=== PATIENT | female | born 1935 | race Two or more races ===

== ENCOUNTER → 2017-06-29 | Outpatient (CLI) | payer MEDICARE, MEDICAID | END | disposition home or self-care (01) | LOC: MAMMO 09:41 | PROVIDERS: ATTEND Specialist | DX: Z12.31 Encounter for screening mammogram for malignant neoplasm of breast (principal) | CPT/HCPCS: 77067 ==

== ENCOUNTER → 2018-01-26 | Outpatient (CLI) | payer MEDICARE, MEDICAID | END | disposition home or self-care (01) | LOC: US 11:05 | PROVIDERS: ATTEND Specialist | DX: E03.9 Hypothyroidism, unspecified (principal) | CPT/HCPCS: 76536 ==

== ENCOUNTER → 2018-02-18 | Day surgery (SDC) | payer MEDICARE, MEDICAID ==
[~2018-02-18] MED LIST: LIDOCAINE HCL 1% 20ML VIAL (Pyxis) INJ ONE; SODIUM BICARBONATE 4% (2.4MEQ) 5ML VIAL IV ONE
== END | disposition home or self-care (01) ==
LOC: RAD 12:52
PROVIDERS: ATTEND Specialist
DX: E04.1 Nontoxic single thyroid nodule (principal); E03.9 Hypothyroidism, unspecified
CPT/HCPCS: 10022; 76942; 88172; 88173; J3490

== ENCOUNTER 2019-05-14 11:30 | Inpatient (IN) | payer MEDICARE, MEDICAID ==
[~2019-05-14] VITALS: Ht 160 cm; Wt 55.8 kg
[2019-05-14] VITALS (11 sets, daily range): BP systolic 94–125; BP diastolic 56–104
[2019-05-14 14:17] LABS: HEMATOCRIT. 37.3 % (36.0-48.0); HEMOGLOBIN. 12.8 g/dL (12.0-16.0); MEAN CORPUSCULAR HEMOGLOBIN 31.3 pg (28.0-32.0); MEAN CORPUSCULAR VOLUME 91.4 fL (81.0-99.0); MEAN PLATELET VOLUME 7.1 fl (7.4-10.4); PLATELET 250 x1000/uL (130-400); RED BLOOD CELL COUNT 4.08 mill/uL (4.2-5.4); RED CELL DISTRIBUTION WIDTH 19.3 % (11.6-14.6)
[2019-05-14 14:32] LABS: PLATELET ESTIMATE NORMAL
[2019-05-14 14:34] LABS: CHLORIDE 109 mEq/L (98-107)
[2019-05-14] MEDS ORDERED: DEXAMETHASONE 10 MG/ML VIAL IV ONE (15:45)
[2019-05-14] MEDS ORDERED: LEVETIRACETAM 500MG PREMIX 100 ML IV ONE (15:45)
[2019-05-14 17:04] LABS: CLARITY URINE CLOUDY (CLEAR); COLOR URINE DARK YELLOW (YELLOW); KETONES URINE 1+ (NEGATIVE); LEUKOCYTE ESTERASE URINE 2+ (NEGATIVE); NITRITE URINE NEGATIVE (NEGATIVE); OCCULT BLOOD URINE NEGATIVE (NEGATIVE); PROTEIN URINE 1+ (NEGATIVE); SPECIFIC GRAVITY URINE 1.023 (1.005-1.030)
[2019-05-14] MEDS ORDERED: NOREPINEPHRINE 4 MG in DEXT 5% WATER 246 ML IV PRN (19:10)
[2019-05-14] MEDS ORDERED: SODIUM CHLORIDE 0.9% 500 ML IV ONE (19:15)
[2019-05-14] MEDS ORDERED: DEXTROSE 50% WATER 50ML SYRINGE IV PRN (19:15)
[2019-05-14] MEDS ORDERED: SODIUM CHLORIDE 0.9% 1,000 ML IV SCH (19:15)
[2019-05-14] MEDS: LACTATED RINGERS 1,000 ML IV SCH (20:24)
[2019-05-14] MEDS ORDERED: FAMOTIDINE 20MG/2ML VIAL IV NR (21:00)
[2019-05-14] MEDS: MORPHINE SULFATE 2 MG/ML CPJ (NOT FOR IM USE) IV PRN (23:01)
[2019-05-14] MEDS: BLOOD SUGAR DIAGNOSTIC STRIP TEST SCH (23:36)
[2019-05-14] MEDS: INSULIN LISPRO 100 UNITS/ML SUBCUT SCH (23:46)
[2019-05-14] MEDS: DEXAMETHASONE 4MG/ML 1ML VIAL IV SCH (23:46)
[2019-05-15] VITALS (76 sets, daily range): BP systolic 72–167; BP diastolic 39–129
[2019-05-15] MEDS: BLOOD SUGAR DIAGNOSTIC STRIP TEST SCH ×3 (05:42→18:00)
[2019-05-15] MEDS: DEXAMETHASONE 4MG/ML 1ML VIAL IV SCH ×3 (05:46→19:17)
[2019-05-15] MEDS: INSULIN LISPRO 100 UNITS/ML SUBCUT SCH ×3 (05:47→18:00)
[2019-05-15 06:04] LABS: BASOPHILS % 0.2 % (0.0-2.0); HEMATOCRIT. 36.7 % (36.0-48.0); HEMOGLOBIN. 12.5 g/dL (12.0-16.0); LYMPHOCYTES % 18.7 % (20.0-50.0); MEAN CORPUSCULAR HEMOGLOBIN 31.5 pg (28.0-32.0); MEAN CORPUSCULAR VOLUME 92.4 fL (81.0-99.0); MEAN PLATELET VOLUME 7.1 fl (7.4-10.4); MONOCYTES % 5.4 % (2.0-8.0); NEUTROPHILS % 75.7 % (40.0-76.0); PLATELET 270 x1000/uL (130-400); RED BLOOD CELL COUNT 3.97 mill/uL (4.2-5.4)
[2019-05-15 06:09] LABS: CHLORIDE 113 mEq/L (98-107)
[2019-05-15] MEDS: FAMOTIDINE 20MG/2ML VIAL IV SCH (08:57)
[2019-05-15] MEDS ORDERED: SULFAMETHOXAZOLE/TRIMETHOPRIM 800/160MG TABLET PO SCH (09:00)
[2019-05-15] MEDS ORDERED: LEVETIRACETAM 500 MG in SODIUM CHLORIDE 0.9% 100 ML IV SCH (09:00)
[2019-05-15] MEDS ORDERED: GADOBENATE DIMEGLUMINE 529 MG/ML 10ML IV ONE (09:31)
[2019-05-15] MEDS ORDERED: CEFTRIAXONE 1 G PREMIX 50 ML IV SCH (10:00)
[2019-05-15] MEDS: LEVETIRACETAM 500MG PREMIX 100 ML IV SCH ×2 (10:09→21:03)
[2019-05-15] MEDS: INSULIN GLARGINE UD 100 UNITS/ML SYR SUBCUT SCH (10:10)
[2019-05-15] MEDS: LACTATED RINGERS 1,000 ML IV SCH (12:43)
[2019-05-15] MEDS ORDERED: METOPROLOL TARTRATE 5MG/5ML VIAL IV PRN (14:30)
[2019-05-15] MEDS: MORPHINE SULFATE 2 MG/ML CPJ (NOT FOR IM USE) IV PRN (15:57)
[2019-05-16] VITALS (46 sets, daily range): BP systolic 59–165; BP diastolic 32–99
[2019-05-16] MEDS: BLOOD SUGAR DIAGNOSTIC STRIP TEST SCH ×5 (00:05→23:37)
[2019-05-16] MEDS: DEXAMETHASONE 4MG/ML 1ML VIAL IV SCH ×5 (00:25→23:45)
[2019-05-16] MEDS: LACTATED RINGERS 1,000 ML IV SCH (00:25)
[2019-05-16] MEDS: INSULIN LISPRO 100 UNITS/ML SUBCUT SCH ×5 (00:27→23:45)
[2019-05-16 05:33] LABS: HEMATOCRIT. 34.5 % (36.0-48.0); HEMOGLOBIN. 11.8 g/dL (12.0-16.0); MEAN CORPUSCULAR HEMOGLOBIN 31.1 pg (28.0-32.0); MEAN CORPUSCULAR VOLUME 91.3 fL (81.0-99.0); MEAN PLATELET VOLUME 7.1 fl (7.4-10.4); PLATELET 294 x1000/uL (130-400); RED BLOOD CELL COUNT 3.77 mill/uL (4.2-5.4); RED CELL DISTRIBUTION WIDTH 19.2 % (11.6-14.6)
[2019-05-16 05:42] LABS: CHLORIDE 114 mEq/L (98-107)
[2019-05-16 05:52] LABS: PHOSPHORUS 2.1 mg/dL (2.5-4.9)
[2019-05-16] MEDS: INSULIN GLARGINE UD 100 UNITS/ML SYR SUBCUT SCH (09:38)
[2019-05-16] MEDS: FAMOTIDINE 20MG/2ML VIAL IV SCH (09:38)
[2019-05-16] MEDS: LEVETIRACETAM 500MG PREMIX 100 ML IV SCH ×2 (09:38→21:04)
[2019-05-16] MEDS ORDERED: POTASSIUM PHOS,M-BASIC-D-BASIC 15 MMOL in DEXT 5% WATER 250 ML IV SCH (10:00)
[2019-05-16 12:39] LABS: PLATELET ESTIMATE NORMAL
[2019-05-16] MEDS ORDERED: LACTATED RINGERS 1,000 ML IV SCH (20:00)
[2019-05-17] VITALS (55 sets, daily range): BP systolic 67–134; BP diastolic 50–87
[2019-05-17 05:44] LABS: HEMATOCRIT. 34.8 % (36.0-48.0); MEAN PLATELET VOLUME 7.4 fl (7.4-10.4); PLATELET 253 x1000/uL (130-400); RED BLOOD CELL COUNT 3.74 mill/uL (4.2-5.4); RED CELL DISTRIBUTION WIDTH 19.4 % (11.6-14.6)
[2019-05-17 05:47] LABS: CHLORIDE 113 mEq/L (98-107)
[2019-05-17] MEDS: BLOOD SUGAR DIAGNOSTIC STRIP TEST SCH ×3 (05:54→18:02)
[2019-05-17 05:56] LABS: PHOSPHORUS 3.5 mg/dL (2.5-4.9)
[2019-05-17] MEDS: DEXAMETHASONE 4MG/ML 1ML VIAL IV SCH ×3 (06:55→18:03)
[2019-05-17] MEDS: INSULIN LISPRO 100 UNITS/ML SUBCUT SCH ×3 (06:56→18:00)
[2019-05-17 07:16] LABS: PLATELET ESTIMATE NORMAL
[2019-05-17] MEDS: DEXT 5%/LACTATED RINGERS 1,000 ML IV SCH (08:45)
[2019-05-17] MEDS: FAMOTIDINE 20MG/2ML VIAL IV SCH (09:00)
[2019-05-17] MEDS: LEVETIRACETAM 500MG PREMIX 100 ML IV SCH ×2 (09:24→20:46)
[2019-05-17] MEDS: INSULIN GLARGINE UD 100 UNITS/ML SYR SUBCUT SCH (09:27)
[2019-05-17] MEDS: MORPHINE SULFATE 2 MG/ML CPJ (NOT FOR IM USE) IV PRN ×2 (11:52→20:46)
[2019-05-18] VITALS: BP 91/50
[2019-05-18] MEDS: DEXAMETHASONE 4MG/ML 1ML VIAL IV SCH ×4 (00:03→12:27)
[2019-05-18] MEDS: BLOOD SUGAR DIAGNOSTIC STRIP TEST SCH ×4 (00:03→16:26)
[2019-05-18] MEDS: INSULIN LISPRO 100 UNITS/ML SUBCUT SCH ×4 (00:11→16:27)
[2019-05-18 04:00] VITALS: BP 118/69
[2019-05-18] MEDS: DEXT 5%/LACTATED RINGERS 1,000 ML IV SCH (04:41)
[2019-05-18 08:00] VITALS: BP 97/54
[2019-05-18] MEDS: FAMOTIDINE 20MG/2ML VIAL IV SCH (08:39)
[2019-05-18] MEDS: LEVETIRACETAM 500MG PREMIX 100 ML IV SCH ×2 (09:53→21:23)
[2019-05-18] MEDS: INSULIN GLARGINE UD 100 UNITS/ML SYR SUBCUT SCH (11:05)
[2019-05-18] MEDS ORDERED: PROPOFOL 200MG/20ML VIAL IV ONE (11:14)
[2019-05-18] MEDS ORDERED: LIDOCAINE HCL/PF 1% 10 MG/ML 5ML VIAL ONE (11:17)
[2019-05-18 11:51] LABS: HEMATOCRIT. 24.3 % (36.0-48.0); MEAN CORPUSCULAR HEMOGLOBIN 31.3 pg (28.0-32.0); MEAN CORPUSCULAR VOLUME 95.5 fL (81.0-99.0); MEAN PLATELET VOLUME 7.2 fl (7.4-10.4); PLATELET 164 x1000/uL (130-400); RED BLOOD CELL COUNT 2.54 mill/uL (4.2-5.4); RED CELL DISTRIBUTION WIDTH 18.8 % (11.6-14.6)
[2019-05-18] MEDS ORDERED: EPHEDRINE SULFATE 50MG/ML VIAL ONE (11:51)
[2019-05-18 11:57] LABS: CHLORIDE 122 mEq/L (98-107)
[2019-05-18 12:00] VITALS: BP 132/75
[2019-05-18 12:00] LABS: INR 1.5; PARTIAL THROMBOPLASTIN TIME 30.6 sec (23.4-31.0); PROTHROMBIN TIME 14.7 sec (9.6-11.0)
[2019-05-18] MEDS: SUCRALFATE 1 G/10 ML UDC GT SCH ×3 (12:00→16:26)
[2019-05-18] MEDS ORDERED: CEFAZOLIN 1000MG PREMIX 50 ML IV NR (12:00)
[2019-05-18] MEDS ORDERED: PANTOPRAZOLE SODIUM 40 MG/VIAL IV NR (12:00)
[2019-05-18 13:44] LABS: PLATELET ESTIMATE NORMAL
[2019-05-18] MEDS ORDERED: POTASSIUM CHLORIDE INJ 60 MEQ in DEXT 5% WATER 500 ML IV ONE (14:00)
[2019-05-18] MEDS ORDERED: DEXT 5% WATER + KCL 40MEQ/L 1,000 ML IV SCH (14:00)
[2019-05-18] MEDS ORDERED: WATER IV PRN (14:30)
[2019-05-18] MEDS ORDERED: METOPROLOL TARTRATE IV PRN (14:30)
[2019-05-18] MEDS ORDERED: DEXTROSE 5% IV PRN (14:30)
[2019-05-18] MEDS ORDERED: POTASSIUM CHLORIDE IV SCH (15:00)
[2019-05-18] MEDS ORDERED: DEXTROSE 5% IV SCH (15:00)
[2019-05-18] MEDS ORDERED: WATER IV SCH (15:00)
[2019-05-18 16:06] VITALS: BP 96/70
[2019-05-18] MEDS: MORPHINE SULFATE 2 MG/ML CPJ (NOT FOR IM USE) IV PRN (16:26)
[2019-05-18] MEDS: LORAZEPAM 2MG/ML CPJ IV PRN (17:59)
[2019-05-18 20:00] VITALS: BP 131/73
[2019-05-19] VITALS: BP 101/61
[2019-05-19] MEDS: SUCRALFATE 1 G/10 ML UDC GT SCH ×4 (00:01→18:46)
[2019-05-19] MEDS: DEXAMETHASONE 4MG/ML 1ML VIAL IV SCH (00:01)
[2019-05-19] MEDS: BLOOD SUGAR DIAGNOSTIC STRIP TEST SCH ×4 (00:01→18:52)
[2019-05-19] MEDS: INSULIN LISPRO 100 UNITS/ML SUBCUT SCH ×4 (00:19→18:00)
[2019-05-19 04:00] VITALS: BP 143/56
[2019-05-19 04:21] LABS: HEMATOCRIT. 32.2 % (36.0-48.0); HEMOGLOBIN. 10.8 g/dL (12.0-16.0); MEAN CORPUSCULAR HEMOGLOBIN 30.8 pg (28.0-32.0); MEAN CORPUSCULAR VOLUME 92.1 fL (81.0-99.0); PLATELET 223 x1000/uL (130-400); RED CELL DISTRIBUTION WIDTH 19.3 % (11.6-14.6)
[2019-05-19 04:24] LABS: CHLORIDE 112 mEq/L (98-107)
[2019-05-19 05:14] LABS: HEPATITIS B SURFACE AB < 3.1 mIU/mL
[2019-05-19 06:28] LABS: PLATELET ESTIMATE NORMAL
[2019-05-19 08:00] VITALS: BP 97/49
[2019-05-19] MEDS ORDERED: LEVETIRACETAM 500MG TABLET PO SCH (09:00)
[2019-05-19] MEDS: FAMOTIDINE 20MG/2ML VIAL IV SCH (09:18)
[2019-05-19 10:03] VITALS: BP 98/64
[2019-05-19] MEDS: INSULIN GLARGINE UD 100 UNITS/ML SYR SUBCUT SCH (11:24)
[2019-05-19 12:00] VITALS: BP 96/48
[2019-05-19] MEDS ORDERED: SUCRALFATE 1G TABLET GT SCH (13:00)
[2019-05-19] MEDS: METOCLOPRAMIDE HCL 10MG/2ML VIAL IV SCH ×2 (13:19→18:46)
[2019-05-19] MEDS: LORAZEPAM 2MG/ML CPJ IV PRN (13:53)
[2019-05-19 16:00] VITALS: BP 98/64
[2019-05-20] MEDS ORDERED: PANTOPRAZOLE SODIUM 40 MG/VIAL IV SCH (09:00)
== END 2019-05-19 20:18 | DRG 64 ==
LOC: ER 11:30 → EDBEDREQ 15:46 → EDBEDREQSVC 15:46 → ENRESERV 17:10 → MICUSO 18:15 → 6EST 05-17 22:15
PROVIDERS: ADMIT Internal Medicine Nephrology; ATTEND Internal Medicine Nephrology
PROC: 0DB68ZX Excision of Stomach, Via Natural or Artificial Opening Endoscopic, Diagnostic (ICD-10-PCS; principal; 2019-05-18)
PROC: 0DH68UZ Insertion of Feeding Device into Stomach, Via Natural or Artificial Opening Endoscopic (ICD-10-PCS; 2019-05-18)
DX: I62.9 Nontraumatic intracranial hemorrhage, unspecified (principal); G93.41 Metabolic encephalopathy; G93.6 Cerebral edema; E43 Unspecified severe protein-calorie malnutrition; N39.0 Urinary tract infection, site not specified; I42.9 Cardiomyopathy, unspecified; K29.70 Gastritis, unspecified, without bleeding; K25.9 Gastric ulcer, unspecified as acute or chronic, without hemorrhage or perforation; I95.9 Hypotension, unspecified; D64.9 Anemia, unspecified; E83.39 Other disorders of phosphorus metabolism; G40.909 Epilepsy, unspecified, not intractable, without status epilepticus; G90.8 Other disorders of autonomic nervous system; T38.0X5A Adverse effect of glucocorticoids and synthetic analogues, initial encounter; I10 Essential (primary) hypertension; K26.9 Duodenal ulcer, unspecified as acute or chronic, without hemorrhage or perforation; K21.9 Gastro-esophageal reflux disease without esophagitis; G93.9 Disorder of brain, unspecified; E11.65 Type 2 diabetes mellitus with hyperglycemia; R13.10 Dysphagia, unspecified; Z51.5 Encounter for palliative care; R00.0 Tachycardia, unspecified; D49.6 Neoplasm of unspecified behavior of brain; Z79.899 Other long term (current) drug therapy
CPT/HCPCS: 36415; 70553; 71045; 76770; 80048; 80053; 81003; 82962; 83735; 84100; 84443; 84460; 84484; 85025; 86703; 86706; 86803; 88305; 88313; 92610; 93005; 93306; 97162; 97166; 99285; A6261; A9577; C9113; J0690; J0696; J1100; J1815; J1953; J2060; J2270; J2704; J2765; J3480; J3490; J7050; J7060; J7070; J7120; J7121

== ENCOUNTER 2019-06-02 13:52 | Inpatient (IN) | payer MEDICARE, MEDICAID ==
[~2019-06-02] VITALS: Ht 152.4 cm; Wt 62.2 kg
[2019-06-02] MEDS ORDERED: SODIUM CHLORIDE 0.9% 1000ML BAG (SEPSIS BOLUS) IV ONE (15:00)
[2019-06-02 15:11] LABS: BG CARBOXYHEMOGLOBIN 0.3 % (0.5-1.5); BG DEOXYHEMOGLOBIN 1.9 % (0.0-5.0); BG HCO3 ACT 28.7 mmol/L (22.0-26.0); BG METHEMOGLOBIN 0.2 % (0.0-1.5); BG OXYGEN SATURATION 98.1 % (92.0-98.5); BG OXYHEMOGLOBIN 97.6 % (94.0-97.0); BG PCO2 38.7 mmHg (35.0-45.0); BG PH 7.488 (7.350-7.450); BG PO2 114.7 mmHg (75.0-100.0); BG SAMPLE SITE RIGHT BRACHIAL; BG TOTAL HEMOGLOBIN 10.7 g/dL (12.0-18.0); BG VENT MODE NASAL CANNULA
[2019-06-02 15:54] LABS: BASOPHILS % 0.4 % (0.0-2.0); EOSINOPHILS % 1.1 % (0.0-5.0); HEMOGLOBIN. 8.8 g/dL (12.0-16.0); LYMPHOCYTES % 23.5 % (20.0-50.0); MEAN CORPUSCULAR HEMOGLOBIN 31.5 pg (28.0-32.0); MEAN CORPUSCULAR VOLUME 93.3 fL (81.0-99.0); MEAN PLATELET VOLUME 6.6 fl (7.4-10.4); MONOCYTES % 10.6 % (2.0-8.0); NEUTROPHILS % 64.4 % (40.0-76.0); PLATELET 333 x1000/uL (130-400); RED BLOOD CELL COUNT 2.79 mill/uL (4.2-5.4); RED CELL DISTRIBUTION WIDTH 20.1 % (11.6-14.6)
[2019-06-02 15:58] LABS: CHLORIDE 108 mEq/L (98-107)
[2019-06-02 16:19] LABS: INR 0.9; PROTHROMBIN TIME 9.7 sec (9.6-11.0)
[2019-06-02] MEDS ORDERED: LEVETIRACETAM 500MG PREMIX 100 ML IV ONE (17:45)
[2019-06-02] MEDS ORDERED: DEXAMETHASONE 10 MG/ML VIAL IV ONE (17:45)
[2019-06-02 17:58] LABS: CLARITY URINE TURBID (CLEAR); COLOR URINE YELLOW (YELLOW); KETONES URINE NEGATIVE (NEGATIVE); LEUKOCYTE ESTERASE URINE 3+ (NEGATIVE); NITRITE URINE NEGATIVE (NEGATIVE); OCCULT BLOOD URINE 1+ (NEGATIVE); PH URINE 7.5 (4.5-8.0); PROTEIN URINE NEGATIVE (NEGATIVE); SPECIFIC GRAVITY URINE 1.009 (1.005-1.030); UROBILINOGEN URINE 0.2 E.U./dL (0.2-1.0)
[2019-06-02] MEDS ORDERED: CEFTRIAXONE 1 G PREMIX 50 ML IV ONE (18:00)
[2019-06-02] MEDS ORDERED: DOCUSATE SODIUM 100MG CAPSULE PEG PRN (18:15)
[2019-06-02] MEDS ORDERED: CLONIDINE 0.1MG TABLET PEG PRN (18:15)
[2019-06-02] MEDS ORDERED: ONDANSETRON HCL 4MG/2ML INJ IV PRN (18:15)
[2019-06-02] MEDS ORDERED: ONDANSETRON HCL 4MG/2ML INJ IV ONE (23:00)
[2019-06-02] MEDS ORDERED: MORPHINE SULFATE 4 MG/ML CPJ (NOT FOR IM USE) IV ONE (23:00)
[2019-06-03] VITALS (12 sets, daily range): BP systolic 92–112; BP diastolic 42–71
[2019-06-03] MEDS ORDERED: DEXTROSE 50% WATER 50ML SYRINGE IV PRN (02:15)
[2019-06-03] MEDS: ACETAMINOPHEN 650MG/20.3ML UDC GT PRN ×2 (04:47→19:51)
[2019-06-03] MEDS: BLOOD SUGAR DIAGNOSTIC STRIP TEST SCH ×3 (05:35→17:53)
[2019-06-03] MEDS: DEXAMETHASONE 10 MG/ML VIAL IV SCH ×3 (06:02→17:52)
[2019-06-03] MEDS: INSULIN LISPRO 100 UNITS/ML SUBCUT SCH ×3 (06:03→17:53)
[2019-06-03 08:27] LABS: CHLORIDE 109 mEq/L (98-107)
[2019-06-03] MEDS ORDERED: LEVETIRACETAM 500MG PREMIX 100 ML IV SCH (09:00)
[2019-06-03] MEDS ORDERED: NA PHOS,M-B/NA PHOS,DI-BA ENEMA 118ML PR SCH (10:30)
[2019-06-03] MEDS ORDERED: LACTULOSE 20G/30ML UDC PO SCH (11:00)
[2019-06-03 11:09] LABS: HEMATOCRIT. 27.5 % (36.0-48.0); HEMOGLOBIN. 9.1 g/dL (12.0-16.0); MEAN CORPUSCULAR HEMOGLOBIN 31.2 pg (28.0-32.0); MEAN PLATELET VOLUME 6.9 fl (7.4-10.4); PLATELET 371 x1000/uL (130-400); RED BLOOD CELL COUNT 2.92 mill/uL (4.2-5.4); RED CELL DISTRIBUTION WIDTH 19.7 % (11.6-14.6)
[2019-06-03] MEDS: CEFTRIAXONE 1 G PREMIX 50 ML IV SCH (11:58)
[2019-06-03] MEDS ORDERED: MORPHINE SULFATE 2 MG/ML CPJ (NOT FOR IM USE) IV PRN (20:30)
[2019-06-03] MEDS: NYSTATIN POWDER 15GM TOP SCH (22:37)
[2019-06-03] MEDS: INSULIN GLARGINE UD 100 UNITS/ML SYR SUBCUT SCH (22:38)
[2019-06-04] VITALS (12 sets, daily range): BP systolic 78–117; BP diastolic 43–59
[2019-06-04] MEDS: DEXAMETHASONE 10 MG/ML VIAL IV SCH ×4 (00:02→17:46)
[2019-06-04] MEDS: LEVETIRACETAM 500MG PREMIX 100 ML IV SCH ×3 (00:02→22:23)
[2019-06-04] MEDS: BLOOD SUGAR DIAGNOSTIC STRIP TEST SCH ×4 (00:02→17:43)
[2019-06-04] MEDS: INSULIN LISPRO 100 UNITS/ML SUBCUT SCH ×4 (00:28→17:48)
[2019-06-04 04:23] LABS: PLATELET ESTIMATE NORMAL
[2019-06-04] MEDS: ACETAMINOPHEN 650MG/20.3ML UDC GT PRN (05:03)
[2019-06-04 07:44] LABS: BASOPHILS % 0.1 % (0.0-2.0); HEMATOCRIT. 25.6 % (36.0-48.0); HEMOGLOBIN. 8.6 g/dL (12.0-16.0); LYMPHOCYTES % 13.3 % (20.0-50.0); MEAN CORPUSCULAR HEMOGLOBIN 31.2 pg (28.0-32.0); MEAN CORPUSCULAR VOLUME 92.7 fL (81.0-99.0); MEAN PLATELET VOLUME 6.9 fl (7.4-10.4); MONOCYTES % 4.8 % (2.0-8.0); NEUTROPHILS % 81.8 % (40.0-76.0); PLATELET 436 x1000/uL (130-400); RED BLOOD CELL COUNT 2.77 mill/uL (4.2-5.4); RED CELL DISTRIBUTION WIDTH 19.6 % (11.6-14.6)
[2019-06-04 08:05] LABS: CHLORIDE 109 mEq/L (98-107)
[2019-06-04] MEDS: NYSTATIN POWDER 15GM TOP SCH ×2 (09:21→20:05)
[2019-06-04] MEDS: CEFTRIAXONE 1 G PREMIX 50 ML IV SCH (09:22)
[2019-06-04] MEDS: DOCUSATE SODIUM SUGAR FREE 100MG/10ML UDC NG SCH (09:22)
[2019-06-04] MEDS: HYDROCODONE/ACETAMINOPHEN 5/325MG TABLET PEG PRN ×2 (12:44→20:05)
[2019-06-04 13:07] LABS: T4 FREE 0.81 ng/dL (0.76-1.46)
[2019-06-04 13:22] LABS: FOLIC ACID (FOLATE) SERUM 13.5 ng/mL (>5.38)
[2019-06-04] MEDS ORDERED: NA PHOS,M-B/NA PHOS,DI-BA ENEMA 118ML PR NR (18:00)
[2019-06-04] MEDS: INSULIN GLARGINE UD 100 UNITS/ML SYR SUBCUT SCH (22:21)
[2019-06-05] VITALS (12 sets, daily range): BP systolic 85–142; BP diastolic 36–85
[2019-06-05] MEDS: ACETAMINOPHEN 650MG/20.3ML UDC GT PRN (00:24)
[2019-06-05] MEDS: BLOOD SUGAR DIAGNOSTIC STRIP TEST SCH ×4 (00:24→18:44)
[2019-06-05] MEDS: DEXAMETHASONE 10 MG/ML VIAL IV SCH ×4 (00:24→18:22)
[2019-06-05] MEDS: INSULIN LISPRO 100 UNITS/ML SUBCUT SCH ×4 (00:38→18:21)
[2019-06-05] MEDS: NYSTATIN POWDER 15GM TOP SCH ×2 (08:32→20:54)
[2019-06-05] MEDS: LEVETIRACETAM 500MG PREMIX 100 ML IV SCH ×2 (08:32→20:54)
[2019-06-05] MEDS: CEFTRIAXONE 1 G PREMIX 50 ML IV SCH (08:32)
[2019-06-05] MEDS: DOCUSATE SODIUM SUGAR FREE 100MG/10ML UDC NG SCH (09:50)
[2019-06-05] MEDS: HYDROCODONE/ACETAMINOPHEN 5/325MG TABLET PEG PRN ×2 (14:14→23:16)
[2019-06-05] MEDS: INSULIN GLARGINE UD 100 UNITS/ML SYR SUBCUT SCH (22:23)
[2019-06-06] VITALS (11 sets, daily range): BP systolic 94–126; BP diastolic 41–81
[2019-06-06] MEDS: DEXAMETHASONE 10 MG/ML VIAL IV SCH ×4 (00:23→17:38)
[2019-06-06] MEDS: BLOOD SUGAR DIAGNOSTIC STRIP TEST SCH ×4 (00:24→18:01)
[2019-06-06] MEDS: INSULIN LISPRO 100 UNITS/ML SUBCUT SCH ×4 (00:24→18:12)
[2019-06-06] MEDS: ACETAMINOPHEN 650MG/20.3ML UDC GT PRN (04:20)
[2019-06-06 06:53] LABS: CHLORIDE 108 mEq/L (98-107)
[2019-06-06 07:31] LABS: HEMATOCRIT. 25.5 % (36.0-48.0); HEMOGLOBIN. 8.8 g/dL (12.0-16.0); MEAN CORPUSCULAR HEMOGLOBIN 31.8 pg (28.0-32.0); MEAN CORPUSCULAR VOLUME 92.8 fL (81.0-99.0); MEAN PLATELET VOLUME 7.4 fl (7.4-10.4); PLATELET 422 x1000/uL (130-400); RED BLOOD CELL COUNT 2.75 mill/uL (4.2-5.4); RED CELL DISTRIBUTION WIDTH 19.3 % (11.6-14.6)
[2019-06-06] MEDS: LEVETIRACETAM 500MG PREMIX 100 ML IV SCH ×2 (08:38→21:13)
[2019-06-06] MEDS: DOCUSATE SODIUM SUGAR FREE 100MG/10ML UDC NG SCH (08:38)
[2019-06-06] MEDS: ASCORBIC ACID 250 MG TABLET PO SCH (08:39)
[2019-06-06] MEDS: ZINC SULFATE 220 MG ( 50 ) CAPSULE PO SCH (08:39)
[2019-06-06] MEDS: CEFTRIAXONE 1 G PREMIX 50 ML IV SCH (09:33)
[2019-06-06] MEDS: NITROFURANTOIN 100MG M/M CAPSULE PO SCH ×2 (11:33→21:13)
[2019-06-06] MEDS: NYSTATIN POWDER 15GM TOP SCH ×2 (11:34→21:13)
[2019-06-06] MEDS ORDERED: MORPHINE SULFATE 2 MG/ML CPJ (NOT FOR IM USE) IV PRN (12:30)
[2019-06-06 14:13] LABS: NUCLEATED RED BLOOD CELLS 1 /100 WBC; PLATELET ESTIMATE SLIGHTLY INCREASED
[2019-06-06] MEDS: HYDROCODONE/ACETAMINOPHEN 5/325MG TABLET PEG PRN (16:54)
[2019-06-06] MEDS: INSULIN GLARGINE UD 100 UNITS/ML SYR SUBCUT SCH (22:10)
[2019-06-07] VITALS (11 sets, daily range): BP systolic 87–137; BP diastolic 51–83
[2019-06-07] MEDS: INSULIN LISPRO 100 UNITS/ML SUBCUT SCH ×4 (00:15→18:08)
[2019-06-07] MEDS: HYDROCODONE/ACETAMINOPHEN 5/325MG TABLET PEG PRN ×2 (00:16→13:46)
[2019-06-07] MEDS: BLOOD SUGAR DIAGNOSTIC STRIP TEST SCH ×4 (00:17→17:58)
[2019-06-07] MEDS: DEXAMETHASONE 10 MG/ML VIAL IV SCH ×2 (00:17→06:22)
[2019-06-07 06:51] LABS: CHLORIDE 105 mEq/L (98-107)
[2019-06-07 08:03] LABS: HEMATOCRIT. 27.4 % (36.0-48.0); HEMOGLOBIN. 9.4 g/dL (12.0-16.0); MEAN CORPUSCULAR HEMOGLOBIN 31.8 pg (28.0-32.0); MEAN CORPUSCULAR VOLUME 93.3 fL (81.0-99.0); MEAN PLATELET VOLUME 7.7 fl (7.4-10.4); PLATELET 414 x1000/uL (130-400); RED BLOOD CELL COUNT 2.94 mill/uL (4.2-5.4); RED CELL DISTRIBUTION WIDTH 20.1 % (11.6-14.6)
[2019-06-07] MEDS: LEVETIRACETAM 500MG PREMIX 100 ML IV SCH (08:05)
[2019-06-07] MEDS: ZINC SULFATE 220 MG ( 50 ) CAPSULE PO SCH (08:05)
[2019-06-07] MEDS: DOCUSATE SODIUM SUGAR FREE 100MG/10ML UDC NG SCH (08:05)
[2019-06-07] MEDS: ASCORBIC ACID 250 MG TABLET PO SCH (08:05)
[2019-06-07] MEDS: NITROFURANTOIN 100MG M/M CAPSULE PO SCH ×2 (08:05→20:39)
[2019-06-07] MEDS: NYSTATIN POWDER 15GM TOP SCH ×2 (09:30→20:40)
[2019-06-07] MEDS: LEVETIRACETAM 500MG/5ML CUP PO SCH ×2 (09:36→20:40)
[2019-06-07 17:55] LABS: PLATELET ESTIMATE INCREASED
[2019-06-07] MEDS: BISACODYL 10MG SUPP PR PRN (18:17)
[2019-06-07] MEDS: INSULIN GLARGINE UD 100 UNITS/ML SYR SUBCUT SCH (22:03)
[2019-06-08] VITALS (12 sets, daily range): BP systolic 102–141; BP diastolic 49–79
[2019-06-08] MEDS: BLOOD SUGAR DIAGNOSTIC STRIP TEST SCH ×5 (00:15→23:34)
[2019-06-08] MEDS: HYDROCODONE/ACETAMINOPHEN 5/325MG TABLET PEG PRN ×2 (00:22→13:07)
[2019-06-08] MEDS: ACETAMINOPHEN 650MG/20.3ML UDC GT PRN (01:51)
[2019-06-08] MEDS: INSULIN LISPRO 100 UNITS/ML SUBCUT SCH ×5 (05:31→23:37)
[2019-06-08] MEDS: DOCUSATE SODIUM SUGAR FREE 100MG/10ML UDC NG SCH (09:07)
[2019-06-08] MEDS: ZINC SULFATE 220 MG ( 50 ) CAPSULE PO SCH (09:08)
[2019-06-08] MEDS: LEVETIRACETAM 500MG/5ML CUP PO SCH ×2 (09:08→22:30)
[2019-06-08] MEDS: ASCORBIC ACID 250 MG TABLET PO SCH (09:08)
[2019-06-08] MEDS: NYSTATIN POWDER 15GM TOP SCH ×2 (09:09→22:31)
[2019-06-08] MEDS: NITROFURANTOIN 100MG M/M CAPSULE PO SCH ×2 (09:09→22:30)
[2019-06-08] MEDS: INSULIN GLARGINE UD 100 UNITS/ML SYR SUBCUT SCH (23:34)
[2019-06-09] VITALS (7 sets, daily range): BP systolic 116–133; BP diastolic 60–80
[2019-06-09] MEDS: BLOOD SUGAR DIAGNOSTIC STRIP TEST SCH ×2 (05:15→11:40)
[2019-06-09] MEDS: BISACODYL 10MG SUPP PR PRN (05:15)
[2019-06-09] MEDS: INSULIN LISPRO 100 UNITS/ML SUBCUT SCH ×2 (05:25→11:47)
[2019-06-09] MEDS: HYDROCODONE/ACETAMINOPHEN 5/325MG TABLET PEG PRN (06:02)
[2019-06-09] MEDS: ASCORBIC ACID 250 MG TABLET PO SCH (09:07)
[2019-06-09] MEDS: NITROFURANTOIN 100MG M/M CAPSULE PO SCH (09:08)
[2019-06-09] MEDS: NYSTATIN POWDER 15GM TOP SCH (09:08)
[2019-06-09] MEDS: DOCUSATE SODIUM SUGAR FREE 100MG/10ML UDC NG SCH (09:08)
[2019-06-09] MEDS: LEVETIRACETAM 500MG/5ML CUP PO SCH (09:08)
[2019-06-09] MEDS: ZINC SULFATE 220 MG ( 50 ) CAPSULE PO SCH (09:08)
== END 2019-06-09 13:25 | DRG 52 ==
LOC: ER 13:52 → EDBEDREQ 18:12 → ENRESERV 06-03 00:09 → 5EST 06-03 01:59
PROVIDERS: ADMIT Internal Medicine Nephrology; ATTEND Internal Medicine Nephrology
PROC: 4A00X4Z Measurement of Central Nervous Electrical Activity, External Approach (ICD-10-PCS; principal; 2019-06-06)
DX: G92 Toxic encephalopathy (principal); R40.20 Unspecified coma; G93.6 Cerebral edema; L89.150 Pressure ulcer of sacral region, unstageable; E46 Unspecified protein-calorie malnutrition; C71.9 Malignant neoplasm of brain, unspecified; I95.9 Hypotension, unspecified; N39.0 Urinary tract infection, site not specified; B96.20 Unspecified Escherichia coli [E. coli] as the cause of diseases classified elsewhere; E11.9 Type 2 diabetes mellitus without complications; G40.909 Epilepsy, unspecified, not intractable, without status epilepticus; E03.9 Hypothyroidism, unspecified; E05.90 Thyrotoxicosis, unspecified without thyrotoxic crisis or storm; I10 Essential (primary) hypertension; Z16.12 Extended spectrum beta lactamase (ESBL) resistance; K21.9 Gastro-esophageal reflux disease without esophagitis; Z93.1 Gastrostomy status; Z79.899 Other long term (current) drug therapy; Z68.26 Body mass index [BMI] 26.0-26.9, adult
CPT/HCPCS: 36415; 36600; 71045; 74176; 80048; 80053; 81003; 82140; 82375; 82607; 82746; 82805; 82962; 83036; 83605; 83880; 84145; 84439; 84443; 84481; 84484; 85025; 86850; 86900; 87077; 87186; 87804; 93005; 93970; 97162; 99291; A6261; C1893; J0696; J1100; J1815; J1953; J2270; J7030; A4315